=== PATIENT | female | born 2000 | race Caucasian/White ===

== ENCOUNTER 2021-03-10 11:53 | Emergency (ER) | payer OTHER ==
[~2021-03-10] VITALS: Ht 162.6 cm; Wt 81.2 kg
[2021-03-10 12:02] VITALS: BP 124/83
--- NOTE | 2021-03-10 12:05 | NUR ---
PT AMBULATED TO BED 2.
[2021-03-10] MEDS ORDERED: NACL 0.9% 1,000 ML IV ONE (12:15)
[2021-03-10] MEDS ORDERED: ONDANSETRON 4 MG/2 ML VIAL IVP ONE (12:15)
--- NOTE | 2021-03-10 12:16 | NUR ---
20 Y/O FEMALE C/O HEADACHE 7/10 THROBBING AND SUPRAPUBIC PAIN 7/10 DESCRIBES STABBING RADIATES TO LOWER BACK [id number]. PT STATES SHE WAS SEEN AT A CLINIC X1WEEK AND WAS TOLD SHE HAD A "STOMACH BUG" AND PAIN WAS DUE TO MENSTRUAL CRAMPS. PT WAS PRESCRIBED ZOFRAN AND SYMPTOMS HAVE WORSENED AND STATES SHE ALMOST HAD A SYNCOPAL EPISODE AT WORK. ABDOMEN IS SOFT, ROUND, TENDER TO PALPATION, BOWEL SOUNDS PRESENT X4, LAST BM 03/10/21. PT DENIES N/V, DENIES FEVER/CHILLS. DENIES PMH NKA
[2021-03-10] MEDS ORDERED: KETOROLAC 30 MG/ML VIAL IVP ONE (14:05)
--- NOTE | 2021-03-10 14:09 | NUR ---
non [employer] intercept technician at pt bedside.
--- NOTE | 2021-03-10 14:14 | NUR ---
Pt taken to CT via W/C.
--- NOTE | 2021-03-10 14:19 | NUR ---
Pt brought back to ER bed 2 via W/C.
--- NOTE | 2021-03-10 14:25 | NUR ---
Pt ambulated to restroom with a steady gait.
[2021-03-10 14:30] LABS: BASOPHILS % (AUTO) 0.4 % (0.0-2.0); EOSINOPHILS # (AUTO) 0.1 K/uL (0-0.4); EOSINOPHILS % (AUTO) 1.1 % (0.0-4.0); HEMATOCRIT 36.2 % (36-48); HEMOGLOBIN 12.4 g/dL (12.0-16.0); LYMPHOCYTES # (AUTO) 1.9 K/uL (2.5-16.5); LYMPHOCYTES % (AUTO) 22.9 % (20.5-51.1); MEAN CORPUSCULAR HEMOGLOBIN 32 pg (27-31); MEAN CORPUSCULAR HGB CONC 34 g/dL (33-37); MONOCYTES # (AUTO) 0.5 K/uL (0.8-1.0); MONOCYTES % (AUTO) 5.7 % (1.7-9.3); NEUTROPHILS # (AUTO) 5.7 K/uL (1.8-7.7); NEUTROPHILS % (AUTO) 69.9 % (42.2-75.2); PLATELET COUNT (AUTO) 282 K/uL (140-450); RED BLOOD CELL COUNT(AUTO) 3.93 MIL/uL (4.20-5.40); RED CELL DISTRIBUTION WIDTH 12.6 % (11.6-13.7); WHITE BLOOD COUNT (AUTO) 8.1 K/uL (4.5-11.0)
[2021-03-10 14:52] LABS: ALBUMIN 3.2 g/dL (3.4-5.0); ANION GAP 12.5 (8-16); CARBON DIOXIDE 25.2 mmol/L (21-32); CREATININE 0.7 mg/dL (0.6-1.3); POTASSIUM 3.7 mmol/L (3.5-5.1); TOTAL BILIRUBIN 0.4 mg/dL (0.0-1.0)
[2021-03-10 15:06] LABS: APPEARANCE,URINE CLEAR (CLEAR); BILIRUBIN,URINE NEGATIVE (NEGATIVE); BLOOD, URINE 1+ (NEGATIVE); COLOR,URINE YELLOW (YELLOW); LEUKOCYTE ESTERASE ,URINE 1+ (NEGATIVE); NITRITE, URINE NEGATIVE (NEGATIVE); UGLUCOSE NEGATIVE (NEGATIVE)
[2021-03-10] MEDS ORDERED: ONDA8TAB87 PO (15:43)
[2021-03-10] MEDS ORDERED: ACET-8386 PO (15:43)
[2021-03-10] MEDS ORDERED: CIPR500T4 PO (15:43)
[2021-03-10] MEDS ORDERED: IBUP-2213 PO (15:43)
[2021-03-10 15:55] VITALS: BP 124/83
--- NOTE | 2021-03-10 15:55 | NUR ---
Patient discharged with v/s stable. Written and verbal after care instructions given and explained. Patient alert, oriented and verbalized understanding of instructions. Ambulatory with steady gait. All questions addressed prior to discharge. ID band removed. Patient advised to follow up with PMD. Rx of cipro 500mg PO BID, ibuprofen 600mg PO TID PRN pain, and zofran 4mg q8h PRN nausea given. Patient educated on indication of medication including possible reaction and side effects. Opportunity to ask questions provided and answered.
== END 2021-03-10 15:54 | disposition home or self-care (01) ==
LOC: MED 11:53
DX: N83.202 Unspecified ovarian cyst, left side (principal); N39.0 Urinary tract infection, site not specified
CPT/HCPCS: 36415; 74176; 80053; 81001; 81025; 83690; 85025; 87086; 96361; 96374; 96375; 99284; J1885; J2405; J7030